=== PATIENT | male | born 1995 | race African-American/Black ===

== ENCOUNTER 2021-02-09 17:07 | Emergency (ER) | payer OTHER ==
[~2021-02-09] VITALS: Ht 185.4 cm; Wt 90.9 kg
[2021-02-09] MEDS ORDERED: ACETAMINOPHEN 325 MG TABLET PO ONE (18:00)
[2021-02-09 19:32] VITALS: BP 152/77
== END 2021-02-09 20:31 ==
LOC: EMS 17:10
DX: S13.4XXA Sprain of ligaments of cervical spine, initial encounter (principal); I10 Essential (primary) hypertension; F32.9 Major depressive disorder, single episode, unspecified; K21.9 Gastro-esophageal reflux disease without esophagitis; V73.6XXA Passenger on bus injured in collision with car, pick-up truck or van in traffic accident, initial encounter; Y93.89 Activity, other specified; Y92.89 Other specified places as the place of occurrence of the external cause; Y99.8 Other external cause status
CPT/HCPCS: 70450; 72070; 72100; 72125; 99285